=== PATIENT | female | born 1940 | race African-American/Black ===

== ENCOUNTER 2016-09-28 09:53 | Observation (INO) | payer MEDICARE ==
[~2016-09-28] VITALS: Ht 165.1 cm; Wt 70.0 kg
[~2016-09-28 09:53] MED LIST: ACETAMIN325 MG PO; ACYCLOVIR400 MG PO; AMLODIPINE2.5 MG PO; AMOXICILLIN/CL875 MG PO; AMOXICILLIN500 M1 OR; AMOXICILLIN500 MG PO; AMOXIL875 MG OR; ARTHRITIS PAIN650 MG PO; ATENOLOL50 MG OR; ATENOLOL50 MG PO; CALTRATE 600 OR; CELEBREX50 MG OR; CENTRUM OR; CENTRUM SILVER OR; CIPRO500 MG OR; CIPRO500 MG PO; CIPROFLOXACN500 MG PO; CLARITIN10 M1 PO; CLARITIN10 MG PO; CORTISPORIN OTI10 M1 OT; CORTISPORIN OTI10 ML AD; CYCLOBENZAPR5 MG PO; EQ ASPIRIN81 M1 OR; FLEXERIL OR; FLEXERIL5 M1 PO; FLEXERIL5 MG PO; FLONASE NASAL50 MCG; FLUTICASONE50 MCG; K-DUR/KLOR-CON10 MEQ PO; KEFLEX500 MG PO; KLOR-CON 1010 MEQ OR; LIDOCAINE VISCOUS OR; LISINOPRIL5 MG PO; LORTAB 5 OR; MAXZIDE PO; MEDDOSEPAK PO; MELOXICAM15 MG PO; METHOCARBAM750 MG PO; MICRO-K8 MEQ OR; NABUMETONE500 MG PO; NAPROSYN500 MG PO; NAPROXEN500 MG PO; OMEPRAZOLE20 MG PO; PENICILLN VK500 MG PO; PNEUMOVAX 23 IM; POLYTRIM OD; PRAVACHOL40 MG OR; PRAVASTATIN SOD40 MG PO; PREDNISONE10 MG PO; PREVACID30 M2 OR; TAM75CAP PO; TESSALON PER100 MG PO; TORADOL OR; TRAMADOL HCL50 MG PO; TRIAM/HCTZ1 CAP OR; VEETIDS500 MG OR; ZANTAC150 M1 PO; ZOVIRAX400 MG PO; ZYRTEC10 MG PO; [UNRECOGNIZED DRUG - OTHER] OR
[2016-09-28] MEDS ORDERED: ALENDRONATE70 MG PO (10:19)
[2016-09-28] MEDS ORDERED: TRAMADOL HCL50 MG PO (10:20)
[2016-09-28] MEDS ORDERED: ATENOLOL50 MG PO (10:21)
[2016-09-28] MEDS ORDERED: ACYCLOVIR400 MG PO (10:21)
[2016-09-28] MEDS ORDERED: AMLODIPINE5 MG PO (10:22)
[2016-09-28 10:32] LABS: HEMATOCRIT 41.4 % (37.0-47.0); HEMOGLOBIN 13.2 g/dl (12.0-16.0); IMMATURE GRANULOCYTES 0.3 % (0.0-1.0); MEAN CELL VOLUME 96.3 fL CALC (80.0-100.0); MEAN CORPUSCULAR HGB 30.7 pG CALC (26.0-32.0); MEAN CORPUSCULAR HGB CONC 31.9 g/L CALC (32.0-36.0); NEUT# 2.08 thou/uL (2.00-7.15); RED BLOOD COUNT 4.3 mill/uL (4.20-5.60); RED CELL DISTRI WIDTH 12.5 % (11.5-15.5)
[2016-09-28 10:48] LABS: ALBUMIN 4.6 g/dL (3.2-5.0); ALKALINE PHOSPHATASE 65 u/l (38-126); ANION GAP 15 (6-22 (CALC)); BILIRUBIN, TOTAL 0.6 mg/dL (0.0-1.4); BUN 11 mg/dL (8-23); BUN/CREATININE RATIO 12 (12-20 (CALC)); CALCIUM 9.5 mg/dL (8.4-10.2); CARBON DIOXIDE 28 mmol/l (22-30); CHLORIDE 106 mmol/l (95-108); CREATININE 0.9 mg/dL (0.5-1.0); GFR > 60 ML/MIN (>=60 (CALC)); GFR FOR AFR.AMER. > 60 ML/MIN (>=60 (CALC)); GLUCOSE 98 mg/dL (82-115); POTASSIUM 3.8 mmol/l (3.5-5.1); SGOT/AST 24 u/l (9-36); SGPT/ALT 29 u/l (11-66); SODIUM 145 mmol/l (137-146); TOTAL PROTEIN 8.1 g/dL (6.3-8.2)
[2016-09-28 10:58] LABS: MYOGLOBIN 34 ng/mL (0 - 62)
[2016-09-28 14:02] VITALS: BP 161/83
[2016-09-28 19:15] VITALS: BP 131/68
[2016-09-29 00:17] VITALS: BP 131/77
[2016-09-29 04:30] VITALS: BP 146/72
[2016-09-29 06:30] LABS: CHOLESTEROL HDL RATIO 3.1 (<4.4 (CALC))
[2016-09-29 09:04] VITALS: BP 139/61
[2016-09-29 09:59] VITALS: BP 139/61
[2016-09-29] MEDS ORDERED: FLONASE AL50 MCG/AC1 NAB (11:17)
[2016-09-29] MEDS ORDERED: MEDDOSEPAK PO (11:17)
== END 2016-09-29 12:22 | disposition home or self-care (01) ==
LOC: ENPENDDIS → ED 09:53 → ED-I 11:28 → ED 13:05 → MS2 13:06
PROVIDERS: Emergency Medicine; ADMIT Internal Medicine; ATTEND Internal Medicine
DX: R07.89 Other chest pain (principal); I10 Essential (primary) hypertension; E78.5 Hyperlipidemia, unspecified; E87.6 Hypokalemia; J30.9 Allergic rhinitis, unspecified; R00.1 Bradycardia, unspecified; T44.7X5A Adverse effect of beta-adrenoreceptor antagonists, initial encounter; Z79.82 Long term (current) use of aspirin

== ENCOUNTER 2017-02-02 16:19 | Emergency (ER) | payer MEDICARE ==
[~2017-02-02] VITALS: Ht 165.1 cm; Wt 70.0 kg
[~2017-02-02 16:19] MED LIST changes: +ALENDRONATE70 MG PO; +AMLODIPINE5 MG PO; +FLONASE AL50 MCG/AC1 NAB
[2017-02-02 17:28] VITALS: BP 155/80
== END 2017-02-02 17:34 | disposition home or self-care (01) ==
LOC: ED 16:19
DX: S80.02XA Contusion of left knee, initial encounter (principal); S80.01XA Contusion of right knee, initial encounter; S60.211A Contusion of right wrist, initial encounter; S70.01XA Contusion of right hip, initial encounter; W01.0XXA Fall on same level from slipping, tripping and stumbling without subsequent striking against object, initial encounter; Y93.89 Activity, other specified; Y92.512 Supermarket, store or market as the place of occurrence of the external cause

== ENCOUNTER → 2018-01-16 | Outpatient (REF) | payer MEDICARE ==
[2018-01-16 08:58] LABS: HEMATOCRIT 38.7 % (37.0-47.0); HEMOGLOBIN 12.1 g/dl (12.0-16.0); IMMATURE GRANULOCYTES 0.2 % (0.0-5.0); MEAN CELL VOLUME 100.3 fL CALC (80.0-100.0); MEAN CORPUSCULAR HGB 31.3 pG CALC (26.0-32.0); MEAN CORPUSCULAR HGB CONC 31.3 g/L CALC (32.0-36.0); NEUT# 2.81 thou/uL (2.00-7.15); RED BLOOD COUNT 3.86 mill/uL (4.20-5.60); RED CELL DISTRI WIDTH 12.4 % (11.5-15.5)
[2018-01-16 09:15] LABS: ALBUMIN 4.1 g/dL (3.2-5.0); ALKALINE PHOSPHATASE 87 u/l (38-126); ANION GAP 11 (6-22 (CALC)); BILIRUBIN, TOTAL 0.5 mg/dL (0.0-1.4); BUN 16 mg/dL (8-23); BUN/CREATININE RATIO 20 (12-20 (CALC)); CALCULATED LDLCHOLESTEROL 94 mg/dL (62-129 (CALC)); CARBON DIOXIDE 32 mmol/l (22-30); CHLORIDE 106 mmol/l (95-108); CHOLESTEROL HDL RATIO 2.5 (<4.4 (CALC)); CREATININE 0.8 mg/dL (0.5-1.0); GFR > 60 ML/MIN (>=60 (CALC)); GFR FOR AFR.AMER. > 60 ML/MIN (>=60 (CALC)); HDL CHOLESTEROL 74 mg/dL (>=40); SGOT/AST 25 u/l (9-36); SODIUM 146 mmol/l (137-146); TOTAL CHOLESTEROL 183 mg/dl (0-199); TOTAL PROTEIN 7.4 g/dL (6.3-8.2); TRIGLYCERIDES REFLEX TO dLDL 77 mg/dl (30-149); VLDL CHOLESTROL 15 mg/dl (0-48 (CALC))
== END | disposition home or self-care (01) ==
LOC: LAB 08:26
PROVIDERS: ATTEND Internal Medicine Geriatric Medicine
DX: I10 Essential (primary) hypertension (principal)

== ENCOUNTER → 2018-06-02 | Outpatient (REF) | payer MEDICARE ==
[2018-06-02 09:27] LABS: HEMATOCRIT 38.9 % (37.0-47.0); IMMATURE GRANULOCYTES 0.2 % (0.0-5.0); MEAN CORPUSCULAR HGB 30.8 pG CALC (26.0-32.0); MEAN CORPUSCULAR HGB CONC 30.8 g/L CALC (32.0-36.0); NEUT# 2.71 thou/uL (2.00-7.15); RED BLOOD COUNT 3.89 mill/uL (4.20-5.60); RED CELL DISTRI WIDTH 12.7 % (11.5-15.5)
[2018-06-02 09:36] LABS: ALBUMIN 4.1 g/dL (3.2-5.0); ALKALINE PHOSPHATASE 88 u/l (38-126); ANION GAP 14 (6-22 (CALC)); BILIRUBIN, TOTAL 0.6 mg/dL (0.0-1.4); BUN 13 mg/dL (8-23); BUN/CREATININE RATIO 17 (12-20 (CALC)); CALCULATED LDLCHOLESTEROL 111 mg/dL (62-129 (CALC)); CARBON DIOXIDE 30 mmol/l (22-30); CHLORIDE 104 mmol/l (95-108); CHOLESTEROL HDL RATIO 2.8 (<4.4 (CALC)); CREATININE 0.8 mg/dL (0.5-1.0); GFR > 60 ML/MIN (>=60 (CALC)); GFR FOR AFR.AMER. > 60 ML/MIN (>=60 (CALC)); HDL CHOLESTEROL 70 mg/dL (>=40); SGOT/AST 27 u/l (9-36); SODIUM 144 mmol/l (137-146); TOTAL CHOLESTEROL 200 mg/dl (0-199); TOTAL PROTEIN 7.3 g/dL (6.3-8.2); TRIGLYCERIDES REFLEX TO dLDL 90 mg/dl (30-149); VLDL CHOLESTROL 18 mg/dl (0-48 (CALC))
== END | disposition home or self-care (01) ==
LOC: LAB 08:24
PROVIDERS: ATTEND Internal Medicine Geriatric Medicine
DX: I10 Essential (primary) hypertension (principal); E78.5 Hyperlipidemia, unspecified

== ENCOUNTER 2018-09-12 06:46 | Day surgery (SDC) | payer MEDICARE ==
[~2018-09-12 06:46] MED LIST changes: +ASPIRIN LOW81 M1 PO; +BISACODYL5 MG PO; +MOTRIN800 MG PO; +PAROXETINE20 MG PO; +TEMAZEPAM15 MG PO; +TYLENOL 500MG TAB PO; +[UNRECOGNIZED DRUG - OTHER] PO
[2018-09-12] MEDS ORDERED: PERCOCET 5/325M1 TAB PO (09:15)
[2018-09-12 10:27] VITALS: BP 165/76
== END 2018-09-12 10:25 | disposition home or self-care (01) ==
LOC: ORM 06:46
PROVIDERS: ATTEND Surgery
PROC: 0WUF0JZ Supplement Abdominal Wall with Synthetic Substitute, Open Approach (ICD-10-PCS; principal; 2018-09-12)
DX: K42.9 Umbilical hernia without obstruction or gangrene (principal); I10 Essential (primary) hypertension
CPT/HCPCS: J0131

== ENCOUNTER 2018-10-20 07:28 | Day surgery (SDC) | payer MEDICARE ==
[~2018-10-20 07:28] MED LIST changes: +PERCOCET 5/325M1 TAB PO
[2018-10-20 10:20] VITALS: BP 161/73
== END 2018-10-20 09:42 | disposition home or self-care (01) ==
LOC: ENDO 07:28
PROVIDERS: ATTEND Internal Medicine Gastroenterology
PROC: 0DBC8ZX Excision of Ileocecal Valve, Via Natural or Artificial Opening Endoscopic, Diagnostic (ICD-10-PCS; principal; 2018-10-20)
DX: Z12.11 Encounter for screening for malignant neoplasm of colon (principal); K63.5 Polyp of colon; K55.20 Angiodysplasia of colon without hemorrhage; K57.30 Diverticulosis of large intestine without perforation or abscess without bleeding; K64.4 Residual hemorrhoidal skin tags; K64.8 Other hemorrhoids; I10 Essential (primary) hypertension

== ENCOUNTER 2022-03-05 17:59 | Emergency (ER) | payer MEDICARE ==
[2022-03-06] MEDS ORDERED: AMOX/K CLAV875 M1 PO (11:35)
[2022-03-06] MEDS ORDERED: FLOXIN OTIC0.3 % AD (11:35)
== END 2022-03-05 20:50 | disposition left against medical advice (07) ==
LOC: ED 17:59 → LWOBS 19:46
DX: Z53.21 Procedure and treatment not carried out due to patient leaving prior to being seen by health care provider (principal)

== ENCOUNTER 2022-03-06 10:38 | Emergency (ER) | payer MEDICARE ==
[~2022-03-06] VITALS: Ht 165.1 cm; Wt 65.9 kg
[2022-03-06 11:21] VITALS: BP 168/77
[2022-03-06 11:30] VITALS: BP 152/73
[2022-03-06] MEDS ORDERED: AMOX/K CLAV875 M1 PO (11:35)
[2022-03-06] MEDS ORDERED: FLOXIN OTIC0.3 % AD (11:35)
[2022-03-06 11:45] VITALS: BP 151/74
[2022-03-06 12:02] VITALS: BP 151/74
== END 2022-03-06 12:10 | disposition home or self-care (01) ==
LOC: ED 10:38
DX: H66.92 Otitis media, unspecified, left ear (principal); H60.92 Unspecified otitis externa, left ear; I10 Essential (primary) hypertension

== ENCOUNTER 2022-11-01 14:29 | Emergency (ER) | payer MEDICARE ==
[~2022-11-01] VITALS: Ht 167.6 cm; Wt 80.7 kg
[~2022-11-01 14:29] MED LIST changes: +AMOX/K CLAV875 M1 PO; +FLOXIN OTIC0.3 % AD; +NORVASC10 M1 PO; +PRAVASTATIN SOD20 MG PO
[2022-11-01 14:45] VITALS: BP 164/80
[2022-11-01 15:00] VITALS: BP 166/74
[2022-11-01 15:15] VITALS: BP 152/75
[2022-11-01 15:30] VITALS: BP 159/73
[2022-11-01 15:30] LABS: BASO% 0.6 % (0-3); EOS% 0.8 % (0-8); HEMATOCRIT 41.5 % (37.0-47.0); HEMOGLOBIN 12.7 g/dl (12.0-16.0); IMMATURE GRANULOCYTES 0.8 % (0.0-5.0); LYMPH% 17.1 % (15-41); MEAN CELL VOLUME 96.7 fL CALC (80.0-100.0); MEAN CORPUSCULAR HGB 29.6 pG CALC (26.0-32.0); MEAN CORPUSCULAR HGB CONC 30.6 g/dL CAL (32.0-36.0); MONO% 9.1 % (2-13); NEUT# 3.55 thou/uL (2.00-7.15); NEUT% 71.6 % (42-76); RED BLOOD COUNT 4.29 mill/uL (4.20-5.60); RED CELL DISTRI WIDTH 12.7 % (11.5-15.5)
[2022-11-01 15:46] LABS: ALBUMIN 4.1 g/dL (3.2-5.0); ALKALINE PHOSPHATASE 115 u/l (38-126); ANION GAP 9 (6-22 (CALC)); BILIRUBIN, TOTAL 0.5 mg/dL (0.02-1.3); BUN 19 mg/dL (8-23); BUN/CREATININE RATIO 21 (12-20 (CALC)); CARBON DIOXIDE 30 mmol/l (22-30); CHLORIDE 107 mmol/l (95-108); CREATININE 0.9 mg/dL (0.5-1.0); GFR FOR AFR.AMER. > 60 ML/MIN (>=60 (CALC)); GFR OTHER RACES 60 ML/MIN (>=60 (CALC)); POTASSIUM 3.7 mmol/l (3.5-5.1); SGOT/AST 32 u/l (9-36); SODIUM 143 mmol/l (137-146); TOTAL PROTEIN 7.9 g/dL (6.3-8.2)
[2022-11-01] MEDS ORDERED: HYDROCHLOROT12.5 M1 PO (16:42)
[2022-11-01] MEDS ORDERED: NEURONTIN100 MG PO (16:42)
[2022-11-01 16:58] VITALS: BP 159/73
== END 2022-11-01 17:06 | disposition home or self-care (01) ==
LOC: ED 14:29
PROVIDERS: Nurse Practitioner
DX: R60.0 Localized edema (principal); R20.2 Paresthesia of skin; I10 Essential (primary) hypertension

== ENCOUNTER 2024-01-08 12:20 | Emergency (ER) | payer MEDICARE ==
[~2024-01-08] VITALS: Ht 167.6 cm; Wt 58.9 kg
[~2024-01-08 12:20] MED LIST changes: +ARICEPT PO; +HYDROCHLOROT12.5 M1 PO; +NEURONTIN100 MG PO
[2024-01-08] MEDS ORDERED: HYDROcodone 5 MG/Acetaminophen 325 MG/COMBO PO ONE (12:35)
[2024-01-08] MEDS ORDERED: LORTAB 5/3255 MG PO (12:45)
[2024-01-08] MEDS ORDERED: METHOCARBAMOL500 MG PO (12:45)
[2024-01-08 13:10] VITALS: BP 184/80
== END 2024-01-08 13:10 | disposition home or self-care (01) ==
LOC: ED 12:20
DX: M26.601 Right temporomandibular joint disorder, unspecified (principal); I10 Essential (primary) hypertension

== ENCOUNTER 2024-03-22 11:34 | Emergency (ER) | payer MEDICARE ==
[2024-03-22] VITALS (13 sets, daily range): BP systolic 159–205; BP diastolic 79–94
[~2024-03-22] VITALS: Ht 167.6 cm; Wt 68.0 kg
[~2024-03-22 11:34] MED LIST changes: +LORTAB 5/3255 MG PO; +METHOCARBAMOL500 MG PO
[2024-03-22] MEDS ORDERED: KETOROLAC TROMETHAMINE 30 MG/ML SDV IM ONE (12:25)
[2024-03-22 12:31] LABS: BASO% 0.6 % (0-3); EOS% 0.9 % (0-8); HEMATOCRIT 38.9 % (37.0-47.0); HEMOGLOBIN 12.2 g/dl (12.0-16.0); IMMATURE GRANULOCYTES 0.3 % (0.0-5.0); LYMPH% 18.7 % (15-41); MEAN CELL VOLUME 97.5 fL CALC (80.0-100.0); MEAN CORPUSCULAR HGB 30.6 pG CALC (26.0-32.0); MEAN CORPUSCULAR HGB CONC 31.4 g/dL CAL (32.0-36.0); MONO% 10.4 % (2-13); NEUT# 2.18 thou/uL (2.00-7.15); NEUT% 69.1 % (42-76); RED BLOOD COUNT 3.99 mill/uL (4.20-5.60); RED CELL DISTRI WIDTH 12.9 % (11.5-15.5)
[2024-03-22 12:51] LABS: ALBUMIN 4.3 g/dL (3.2-5.0); ALKALINE PHOSPHATASE 100 u/l (38-126); ANION GAP 11 (6-22 (CALC)); BILIRUBIN, TOTAL 0.5 mg/dL (0.02-1.3); BUN 13 mg/dL (8-23); BUN/CREATININE RATIO 17 (12-20 (CALC)); CARBON DIOXIDE 34 mmol/l (22-30); CHLORIDE 102 mmol/l (95-108); CREATININE 0.8 mg/dL (0.5-1.0); ESTIMATED GFR 74 ML/MIN (>=90 (CALC)); POTASSIUM 3.4 mmol/l (3.5-5.1); SGOT/AST 28 u/l (9-36); SODIUM 144 mmol/l (137-146); TOTAL PROTEIN 7.6 g/dL (6.3-8.2)
[2024-03-22] MEDS ORDERED: MOTRIN400 MG/TAB PO (13:25)
[2024-03-22 14:04] LABS: URINE BILIRUBIN - DIPSTICK Negative (NEGATIVE); URINE BLOOD DIPSTICK Trace-lysed (NEGATIVE); URINE COLOR Yellow; URINE GLUCOSE - DIPSTICK Negative (NEGATIVE); URINE KETONE Trace mg/dL (NEGATIVE); URINE LEUK ESTERASE Negative (NEGATIVE); URINE NITRITE - DIPSTICK Negative (Negative); URINE PH 6.5 (4.5-8.0); URINE PROTEIN - DIPSTICK Negative (NEG-TRACE)
== END 2024-03-22 15:22 | disposition home or self-care (01) ==
LOC: ED 11:34
PROVIDERS: Family Medicine
DX: M54.2 Cervicalgia (principal); M54.50 Low back pain, unspecified; I10 Essential (primary) hypertension

== ENCOUNTER 2024-03-27 14:47 | Observation (INO) | payer MEDICARE ==
[2024-03-27] VITALS (18 sets, daily range): BP systolic 127–170; BP diastolic 67–142
[~2024-03-27] VITALS: Ht 167.6 cm; Wt 66.0 kg
[~2024-03-27 14:47] MED LIST changes: +MOTRIN400 MG/TAB PO
[2024-03-27 15:09] LABS: BASO% 0.5 % (0-3); EOS% 0.7 % (0-8); HEMATOCRIT 39.7 % (37.0-47.0); HEMOGLOBIN 12.1 g/dl (12.0-16.0); IMMATURE GRANULOCYTES 0.2 % (0.0-5.0); LYMPH% 14.2 % (15-41); MEAN CELL VOLUME 98.5 fL CALC (80.0-100.0); MEAN CORPUSCULAR HGB CONC 30.5 g/dL CAL (32.0-36.0); MONO% 7.8 % (2-13); NEUT# 3.13 thou/uL (2.00-7.15); NEUT% 76.6 % (42-76); RED BLOOD COUNT 4.03 mill/uL (4.20-5.60); RED CELL DISTRI WIDTH 12.7 % (11.5-15.5)
[2024-03-27 15:27] LABS: ALBUMIN 4.3 g/dL (3.2-5.0); ALKALINE PHOSPHATASE 100 u/l (38-126); ANION GAP 13 (6-22 (CALC)); BILIRUBIN, TOTAL 0.6 mg/dL (0.02-1.3); BUN 12 mg/dL (8-23); BUN/CREATININE RATIO 12 (12-20 (CALC)); CARBON DIOXIDE 29 mmol/l (22-30); CHLORIDE 106 mmol/l (95-108); ESTIMATED GFR 56 ML/MIN (>=90 (CALC)); SGOT/AST 29 u/l (9-36); SODIUM 144 mmol/l (137-146); TOTAL PROTEIN 7.6 g/dL (6.3-8.2)
[2024-03-27] MEDS ORDERED: POTASSIUM CHLORIDE 20 MEQ/TAB PO ONE (16:10)
[2024-03-27 17:43] LABS: URINE BILIRUBIN - DIPSTICK Negative (NEGATIVE); URINE BLOOD DIPSTICK Negative (NEGATIVE); URINE COLOR Yellow; URINE GLUCOSE - DIPSTICK Negative (NEGATIVE); URINE KETONE Trace mg/dL (NEGATIVE); URINE LEUK ESTERASE Negative (NEGATIVE); URINE NITRITE - DIPSTICK Negative (Negative); URINE PH 6.5 (4.5-8.0); URINE PROTEIN - DIPSTICK 30 mg/dL (NEG-TRACE)
[2024-03-27 17:55] LABS: URINE RBC 0-2 RBC/hpf (0-5); URINE RENAL EPITHELIAL CELLS FEW hpf; URINE SQUAMOUS EPITHELIAL CELL FEW EPI/hpf (0-FEW); URINE WBC 0-2 WBC/hpf (0-5)
[2024-03-27 17:56] LABS: URINE COARSE GRANULAR CAST FEW lpf; URINE HYALINE CAST FEW lpf (NONE-RARE)
[2024-03-27] MEDS ORDERED: SODIUM CHLORIDE 0.9% 1,000 ML IV PRN (20:45)
[2024-03-27] MEDS ORDERED: MAGNESIUM HYDROXIDE 30 ML UDC PO PRN (20:45)
[2024-03-27] MEDS ORDERED: ACETAMINOPHEN 325 MG/TAB PO PRN (20:45)
[2024-03-27] MEDS ORDERED: ENOXAPARIN SODIUM 40 MG/0.4 ML SYR SC SCH (21:00)
[2024-03-27] MEDS ORDERED: ATENOLOL 50 MG/TAB PO SCH (21:00)
[2024-03-28] VITALS: BP 149/57
[2024-03-28 03:58] VITALS: BP 166/86
[2024-03-28 04:00] VITALS: BP 166/86
[2024-03-28 05:45] LABS: ALBUMIN 3.5 g/dL (3.2-5.0); BILIRUBIN, TOTAL 0.5 mg/dL (0.02-1.3); CREATININE 0.7 mg/dL (0.5-1.0); MAGNESIUM 2.2 mg/dL (1.6-2.3); TOTAL PROTEIN 6.4 g/dL (6.3-8.2)
[2024-03-28 05:52] LABS: BASO% 0.7 % (0-3); EOS% 2.2 % (0-8); HEMATOCRIT 37.4 % (37.0-47.0); HEMOGLOBIN 11.3 g/dl (12.0-16.0); IMMATURE GRANULOCYTES 0.2 % (0.0-5.0); LYMPH% 23.7 % (15-41); MEAN CELL VOLUME 98.9 fL CALC (80.0-100.0); MEAN CORPUSCULAR HGB 29.9 pG CALC (26.0-32.0); MEAN CORPUSCULAR HGB CONC 30.2 g/dL CAL (32.0-36.0); MONO% 9.6 % (2-13); NEUT# 2.57 thou/uL (2.00-7.15); NEUT% 63.6 % (42-76); RED BLOOD COUNT 3.78 mill/uL (4.20-5.60); RED CELL DISTRI WIDTH 12.7 % (11.5-15.5)
[2024-03-28 06:08] LABS: POTASSIUM 3.7 mmol/l (3.5-5.1)
[2024-03-28 06:45] VITALS: BP 152/70
[2024-03-28 07:50] VITALS: BP 152/70
[2024-03-28 08:46] VITALS: BP 152/70
[2024-03-28] MEDS ORDERED: PARoxetine 10 MG/TAB PO SCH (09:00)
[2024-03-28] MEDS ORDERED: amLODIPine BESYLATE 5 MG/TAB PO SCH (09:00)
[2024-03-28] MEDS ORDERED: COZAAR50 MG PO (11:58)
[2024-03-28] MEDS ORDERED: LATANOPROST0.005 % OU (11:59)
== END 2024-03-28 11:23 | disposition short-term general hospital (02) ==
LOC: ED 14:47 → ED-I 16:50 → ED 16:52 → MS2 16:53 → ED-I 16:53 → MS2 20:33
PROVIDERS: Family Medicine; Nurse Practitioner Family; ADMIT Internal Medicine; ATTEND Internal Medicine
DX: I44.2 Atrioventricular block, complete (principal); I49.5 Sick sinus syndrome; I10 Essential (primary) hypertension; E78.5 Hyperlipidemia, unspecified
CPT/HCPCS: G0378; J1650

== ENCOUNTER 2024-04-08 09:56 | Emergency (ER) | payer MEDICARE ==
[~2024-04-08] VITALS: Ht 167.6 cm; Wt 63.5 kg
[2024-04-08] VITALS (11 sets, daily range): BP systolic 107–164; BP diastolic 68–103
[~2024-04-08 09:56] MED LIST changes: +COZAAR50 MG PO; +LATANOPROST0.005 % OU
[2024-04-08] MEDS ORDERED: GABAPENTIN100 MG PO (10:25)
[2024-04-08] MEDS ORDERED: SODIUM CHLORIDE 0.9% 1,000 ML IV ONE (10:35)
[2024-04-08 10:48] LABS: BASO% 1.4 % (0-3); HEMATOCRIT 39.4 % (37.0-47.0); HEMOGLOBIN 12.2 g/dl (12.0-16.0); IMMATURE GRANULOCYTES 0.3 % (0.0-5.0); MEAN CELL VOLUME 97.3 fL CALC (80.0-100.0); MEAN CORPUSCULAR HGB 30.1 pG CALC (26.0-32.0); MONO% 8.1 % (2-13); NEUT# 2.42 thou/uL (2.00-7.15); NEUT% 70.2 % (42-76); RED BLOOD COUNT 4.05 mill/uL (4.20-5.60); RED CELL DISTRI WIDTH 12.6 % (11.5-15.5)
[2024-04-08 11:00] LABS: ALBUMIN 4.2 g/dL (3.2-5.0); ALKALINE PHOSPHATASE 104 u/l (38-126); ANION GAP 13 (6-22 (CALC)); BUN 15 mg/dL (8-23); BUN/CREATININE RATIO 18 (12-20 (CALC)); CARBON DIOXIDE 27 mmol/l (22-30); CHLORIDE 107 mmol/l (95-108); CREATININE 0.8 mg/dL (0.5-1.0); ESTIMATED GFR 74 ML/MIN (>=90 (CALC)); POTASSIUM 3.2 mmol/l (3.5-5.1); SGOT/AST 31 u/l (9-36); SODIUM 143 mmol/l (137-146)
[2024-04-08 11:05] LABS: BILIRUBIN, TOTAL 0.8 mg/dL (0.02-1.3); TOTAL PROTEIN 7.8 g/dL (6.3-8.2)
[2024-04-08 11:30] LABS: TSH, 3RD GENERATION 0.61 uIU/mL (0.47 - 4.68)
[2024-04-08] MEDS ORDERED: AZITHROMYCIN 500 MG in SODIUM CHLORIDE 0.9% 500 ML IV ONE (11:35)
[2024-04-08] MEDS ORDERED: cefTRIAXone SODIUM 2 GM in SODIUM CHLORIDE 0.9% 100 ML IV ONE (11:35)
[2024-04-08 12:30] LABS: URINE BILIRUBIN - DIPSTICK Negative (NEGATIVE); URINE BLOOD DIPSTICK Negative (NEGATIVE); URINE GLUCOSE - DIPSTICK Negative (NEGATIVE); URINE KETONE Negative (NEGATIVE); URINE LEUK ESTERASE Negative (NEGATIVE); URINE NITRITE - DIPSTICK Negative (Negative); URINE PH 7.5 (4.5-8.0); URINE PROTEIN - DIPSTICK Negative (NEG-TRACE); URINE UROBILINOGEN - DIPSTICK 0.2 E.U./dL (0.2)
[2024-04-08 12:34] LABS: URINE COLOR Yellow
[2024-04-08] MEDS ORDERED: DOXYCYCLINE100 MG PO (13:04)
== END 2024-04-08 14:20 | disposition home or self-care (01) ==
LOC: ED 09:56
PROVIDERS: Family Medicine
DX: J18.9 Pneumonia, unspecified organism (principal); I10 Essential (primary) hypertension; Z20.822 Contact with and (suspected) exposure to COVID-19
CPT/HCPCS: J0456; J0696; Q9967